=== PATIENT | female | born 1940 | race African-American/Black ===

== ENCOUNTER 2021-03-20 05:47 | Inpatient (IN) | payer MEDICARE, OTHER ==
[2021-03-15 16:37] VITALS: BMI 26.4
[2021-03-20] MEDS ORDERED: VANCOMYCIN 1,000 MG VIAL (RESTRICTED TO ID ONLY) ONE (07:19)
[2021-03-20] MEDS ORDERED: BUPIVACAINE LIPOSOME/PF (EXPAREL) 266 MG/20 ML VIAL ONE (07:20)
[2021-03-20] MEDS ORDERED: MIDAZOLAM HCL 2 MG/2 ML SINGLE DOSE VIAL ONE (07:20)
[2021-03-20] MEDS ORDERED: SODIUM CHLORIDE 0.9% P/F 10 ML VIAL IJ ONE (07:20)
[2021-03-20] MEDS ORDERED: BUPIVACAINE HCL/PF 0.5% (5MG/ML) 10 ML VIAL ONE ×2 (07:20→07:35)
[2021-03-20] MEDS ORDERED: CEFAZOLIN 1 GM/D5W 1 GM/50 ML BAG IVPB ONE (07:40)
[2021-03-20] MEDS ORDERED: MAG HYDROX/AL HYDROX/SIMETH 30 ML UNIT-DOSE CUP PO PRN (07:41)
[2021-03-20] MEDS ORDERED: ONDANSETRON 4 MG/2 ML VIAL IVPUSH PRN (07:41)
[2021-03-20] MEDS ORDERED: LACTATED RINGERS SOLUTION 1,000 ML IV SCH (07:45)
[2021-03-20] MEDS ORDERED: ceFAZolin SODIUM 1 GM VIAL ONE (08:18)
[2021-03-20] MEDS ORDERED: TRANEXAMIC ACID 1000 MG/10 ML VIAL ONE ×2 (08:20→10:13)
[2021-03-20] MEDS ORDERED: DEXAMETHASONE SOD PHOSPHATE 4 MG/1 ML VIAL ONE (08:21)
[2021-03-20] MEDS ORDERED: BUPIVICAINE 0.25%/MORPH PF/KETOROLAC - 51ML DISP.SYRINGE IA ONE ×3 (08:53→11:04)
[2021-03-20] MEDS ORDERED: ePHEDrine SULFATE 50 MG/1 ML AMPULE ONE (10:43)
[2021-03-20] MEDS ORDERED: ACETAMINOPHEN INJECTION 100 ML IVPB ONE (11:47)
[2021-03-20] MEDS ORDERED: KETOROLAC TROMETHAMINE 30 MG/1 ML VIAL ONE (11:47)
[2021-03-20] MEDS ORDERED: ACETAMINOPHEN 1000 MG/100 ML BAG IVPB ONE (11:48)
[2021-03-20] MEDS ORDERED: oxyCODONE HCL 5 MG TABLET PO PRN ×2 (11:48)
[2021-03-20] MEDS: KETOROLAC TROMETHAMINE 30 MG/1 ML VIAL IVPUSH SCH ×2 (12:00→17:49)
[2021-03-20] MEDS ORDERED: ACETAMINOPHEN 500 MG TABLET (FP) PO SCH (12:00)
[2021-03-20] MEDS ORDERED: METHYLPHENIDATE HCL 20 MG PO SCH (14:00)
[2021-03-20] MEDS ORDERED: PATIENT'S OWN MEDICATION (NON-FORMULARY) (Dexlansoprazole [Dexilant] 60 MG Cap.Dr.Bp) PO SCH (14:00)
[2021-03-20] MEDS ORDERED: oxyCODONE HCL 10 MG SUSTAINED ACTING TABLET PO SCH (14:07)
[2021-03-20] MEDS: LOSARTAN 50MG/HCTZ 12.5MG 1 TAB PO SCH (14:33)
[2021-03-20] MEDS: amLODIPine BESYLATE 2.5 MG TABLET (FP) PO SCH (14:33)
[2021-03-20] MEDS: metoPROLOL SUCCINATE 25 MG TAB.SR.24H (FP) PO SCH (14:33)
[2021-03-20] MEDS: ESCITALOPRAM OXALATE 20 MG TABLET PO SCH (14:33)
[2021-03-20] MEDS: oxyCODONE HCL 10 MG SUSTAINED ACTING TABLET PO SCH (14:34)
[2021-03-20] MEDS ORDERED: PATIENT'S OWN MEDICATION (NON-FORMULARY) (Linaclotide [Linzess] 72 MCG Capsule) PO SCH (15:15)
[2021-03-20] MEDS: CEFAZOLIN 2 GM/D5W 2 GM/50 ML ML IVPB SCH (17:49)
[2021-03-20] MEDS: ACETAMINOPHEN 500 MG TABLET (FP) PO SCH (17:50)
[2021-03-20] MEDS: MULTIVITAMINS (DAILY MVI) TABLET (FP) PO SCH (20:21)
[2021-03-20] MEDS: SENNOSIDES/DOCUSATE COMBO (SENNA PLUS) TABLET (UD) PO SCH ×2 (20:21→21:31)
[2021-03-20] MEDS: GABAPENTIN 300 MG CAPSULE PO SCH ×2 (20:21→21:31)
[2021-03-20] MEDS: PANTOPRAZOLE 40 MG TABLET PO SCH (20:21)
[2021-03-20] MEDS: ATORVASTATIN CA 20 MG TABLET (FP) PO SCH (21:31)
[2021-03-20] MEDS ORDERED: CYCLOBENZAPRINE HCL 5 MG TABLET PO PRN (22:00)
[2021-03-20] MEDS: LATANOPROST 0.005% OPHTH SOLN 2.5ML BOTTLE OU SCH (22:25)
[2021-03-21] MEDS: CEFAZOLIN 2 GM/D5W 2 GM/50 ML ML IVPB SCH ×2 (00:01→08:28)
[2021-03-21] MEDS: oxyCODONE HCL 10 MG SUSTAINED ACTING TABLET PO SCH ×3 (00:01→21:27)
[2021-03-21] MEDS: ACETAMINOPHEN 500 MG TABLET (FP) PO SCH ×4 (06:22→18:41)
[2021-03-21 08:14] LABS: HEMATOCRIT 27.6 % (32.4-45.2); MCH 32.9 pg (25.7-33.7); MCHC 32.6 g/dl (32.0-36.0); MEAN CELL VOLUME 100.8 fl (80-96); MEAN PLT VOLUME 9.2 fl (7.5-11.1); PLATELET COUNT 232 10^3/uL (134-434); RBC 2.73 M/mm3 (3.60-5.2); RDW 12.4 % (11.6-15.6); WHITE BLOOD COUNT 12.5 K/mm3 (4.0-10.8)
[2021-03-21 08:17] LABS: CALCIUM 8.5 mg/dl (8.5-10); CREATININE 1.2 mg/dl (0.55-1.3)
[2021-03-21] MEDS: metoPROLOL SUCCINATE 25 MG TAB.SR.24H (FP) PO SCH (09:53)
[2021-03-21] MEDS: MULTIVITAMINS (DAILY MVI) TABLET (FP) PO SCH (09:53)
[2021-03-21] MEDS: amLODIPine BESYLATE 2.5 MG TABLET (FP) PO SCH (09:53)
[2021-03-21] MEDS: ESCITALOPRAM OXALATE 20 MG TABLET PO SCH (09:53)
[2021-03-21] MEDS: GABAPENTIN 300 MG CAPSULE PO SCH ×2 (09:53→21:27)
[2021-03-21] MEDS: FUROSEMIDE 20 MG TABLET (FP) PO SCH (09:54)
[2021-03-21] MEDS: LOSARTAN 50MG/HCTZ 12.5MG 1 TAB PO SCH (09:54)
[2021-03-21] MEDS: PANTOPRAZOLE 40 MG TABLET PO SCH (09:54)
[2021-03-21] MEDS: ASPIRIN 325 MG TABLET PO SCH ×2 (09:54→21:27)
[2021-03-21] MEDS ORDERED: PATIENT'S OWN MEDICATION (NON-FORMULARY) (Linaclotide [Linzess] 72 MCG Capsule) PO SCH (10:00)
[2021-03-21] MEDS: SENNOSIDES/DOCUSATE COMBO (SENNA PLUS) TABLET (UD) PO SCH ×2 (10:03→21:27)
[2021-03-21] MEDS ORDERED: PT OWN MED DRAWER 7, Y5N ONE ×2 (10:34→21:23)
[2021-03-21] MEDS ORDERED: ACETAMINOPHEN 325 MG TABLET (FP) ONE (21:23)
[2021-03-21] MEDS: LATANOPROST 0.005% OPHTH SOLN 2.5ML BOTTLE OU SCH (21:26)
[2021-03-21] MEDS: ATORVASTATIN CA 20 MG TABLET (FP) PO SCH (21:27)
[2021-03-22] MEDS ORDERED: ACETAMINOPHEN 500 MG TABLET (FP) ONE (06:37)
[2021-03-22] MEDS: ACETAMINOPHEN 500 MG TABLET (FP) PO SCH ×3 (06:38→11:21)
[2021-03-22 08:07] LABS: HEMATOCRIT 25.5 % (32.4-45.2); HEMOGLOBIN 8.7 GM/dl (10.7-15.3); MCH 33.6 pg (25.7-33.7); MEAN CELL VOLUME 98.7 fl (80-96); MEAN PLT VOLUME 9.3 fl (7.5-11.1); PLATELET COUNT 210 10^3/uL (134-434); RBC 2.59 M/mm3 (3.60-5.2); RDW 12.5 % (11.6-15.6)
[2021-03-22] MEDS: ASPIRIN 325 MG TABLET PO SCH (11:14)
[2021-03-22] MEDS: MULTIVITAMINS (DAILY MVI) TABLET (FP) PO SCH (11:14)
[2021-03-22] MEDS: ESCITALOPRAM OXALATE 20 MG TABLET PO SCH (11:15)
[2021-03-22] MEDS: LOSARTAN 50MG/HCTZ 12.5MG 1 TAB PO SCH (11:15)
[2021-03-22] MEDS: FUROSEMIDE 20 MG TABLET (FP) PO SCH (11:15)
[2021-03-22] MEDS: metoPROLOL SUCCINATE 25 MG TAB.SR.24H (FP) PO SCH (11:19)
[2021-03-22] MEDS: SENNOSIDES/DOCUSATE COMBO (SENNA PLUS) TABLET (UD) PO SCH (11:19)
[2021-03-22] MEDS: PANTOPRAZOLE 40 MG TABLET PO SCH (11:19)
[2021-03-22] MEDS: oxyCODONE HCL 10 MG SUSTAINED ACTING TABLET PO SCH (11:20)
[2021-03-22] MEDS: GABAPENTIN 300 MG CAPSULE PO SCH (11:20)
[2021-03-22] MEDS: amLODIPine BESYLATE 2.5 MG TABLET (FP) PO SCH (11:24)
[2021-03-22 14:08] VITALS: BP 98/41; PULSE 84; TEMP 99.9
== END 2021-03-22 17:33 | disposition home or self-care (01) | DRG 470 ==
LOC: FM/S 05:47 → UNDODISIN 03-22 14:57
PROVIDERS: ADMIT Orthopaedic Surgery Sports Medicine; ATTEND Nurse Practitioner Acute Care
PROC: 0MQP4ZZ Repair Left Knee Bursa and Ligament, Percutaneous Endoscopic Approach (ICD-10-PCS; 2021-03-20)
PROC: 0SRD0JZ Replacement of Left Knee Joint with Synthetic Substitute, Open Approach (ICD-10-PCS; principal; 2021-03-20 08:41)
DX: M17.12 Unilateral primary osteoarthritis, left knee (principal); E78.5 Hyperlipidemia, unspecified; I10 Essential (primary) hypertension; K58.9 Irritable bowel syndrome, unspecified; G47.419 Narcolepsy without cataplexy
CPT/HCPCS: 36415; 73560-TC-LT-FY; 80048; 85027; 88305-TC; 88311-TC; 94760; 97116-GP; 97163-GP; J0131

== ENCOUNTER 2021-08-07 05:56 | Inpatient (IN) | payer MEDICARE, OTHER ==
[2021-08-01 16:59] VITALS: BMI 28.3
[~2021-08-07 05:56] MED LIST: VANCOMYCIN 1,000 MG VIAL (RESTRICTED TO ID ONLY) IVPB ONE
[2021-08-07] MEDS ORDERED: BUPIVACAINE LIPOSOME/PF (EXPAREL) 266 MG/20 ML VIAL ONE (06:40)
[2021-08-07] MEDS ORDERED: MIDAZOLAM HCL 2 MG/2 ML SINGLE DOSE VIAL ONE (06:40)
[2021-08-07] MEDS ORDERED: SODIUM CHLORIDE 0.9% P/F 10 ML VIAL IJ ONE (06:41)
[2021-08-07] MEDS ORDERED: BUPIVACAINE HCL/PF 0.5% (5MG/ML) 10 ML VIAL ONE ×2 (06:41→07:45)
[2021-08-07] MEDS ORDERED: MAG HYDROX/AL HYDROX/SIMETH 30 ML UNIT-DOSE CUP PO PRN (07:22)
[2021-08-07] MEDS ORDERED: ONDANSETRON 4 MG/2 ML VIAL IVPUSH PRN (07:22)
[2021-08-07] MEDS ORDERED: VANCOMYCIN 1,000 MG VIAL (RESTRICTED TO ID ONLY) ONE (07:22)
[2021-08-07] MEDS ORDERED: LACTATED RINGERS SOLUTION 1,000 ML IV SCH (07:30)
[2021-08-07] MEDS ORDERED: DEXMEDETOMIDINE HCL 200 MCG/2 ML IVPB ONE (07:44)
[2021-08-07] MEDS ORDERED: PROPOFOL 20 ML ONE (08:09)
[2021-08-07] MEDS ORDERED: SUCCINYLCHOLINE CHLORIDE 200 MG/10 ML SYRINGE ONE (08:09)
[2021-08-07] MEDS ORDERED: ePHEDrine SULFATE 50 MG/1 ML AMPULE ONE (08:50)
[2021-08-07] MEDS ORDERED: PHENYLEPHRINE HCL 10 MG/1 ML SINGLE DOSE VIAL ONE (09:00)
[2021-08-07] MEDS ORDERED: BUPIVICAINE 0.25%/MORPH PF/KETOROLAC - 51ML DISP.SYRINGE IA ONE ×2 (09:31→10:10)
[2021-08-07] MEDS ORDERED: PANTOPRAZOLE 40 MG TABLET PO SCH (10:00)
[2021-08-07] MEDS ORDERED: VANCOMYCIN 1,000 MG VIAL (RESTRICTED TO ID ONLY) IVPB ONE (10:01)
[2021-08-07] MEDS ORDERED: oxyCODONE HCL 5 MG TABLET PO PRN ×2 (10:56→11:05)
[2021-08-07] MEDS ORDERED: ACETAMINOPHEN 1000 MG/100 ML BAG IVPB ONE (10:56)
[2021-08-07] MEDS: ACETAMINOPHEN 1000 MG/100 ML BAG IVPB SCH ×4 (11:30→23:46)
[2021-08-07] MEDS ORDERED: METHYLPHENIDATE HCL 20 MG PO SCH (13:15)
[2021-08-07] MEDS ORDERED: PATIENT'S OWN MEDICATION (NON-FORMULARY) (Linaclotide [Linzess] 72 MCG Capsule) PO SCH (13:15)
[2021-08-07] MEDS: LACTATED RINGERS SOLUTION 1,000 ML IV SCH (14:00)
[2021-08-07] MEDS: MULTIVITAMINS (DAILY MVI) TABLET (FP) PO SCH (14:01)
[2021-08-07] MEDS: metoPROLOL SUCCINATE 25 MG TAB.SR.24H (FP) PO SCH (14:01)
[2021-08-07] MEDS: ESCITALOPRAM OXALATE 20 MG TABLET PO SCH (14:02)
[2021-08-07] MEDS: GABAPENTIN 300 MG CAPSULE PO SCH ×2 (14:02→21:27)
[2021-08-07] MEDS: SENNOSIDES/DOCUSATE COMBO (SENNA PLUS) TABLET (UD) PO SCH ×2 (14:02→21:27)
[2021-08-07] MEDS: LOSARTAN 50MG/HCTZ 12.5MG 1 TAB PO SCH (14:04)
[2021-08-07] MEDS ORDERED: ceFAZolin SODIUM 1 GM VIAL ONE ×2 (16:20→21:17)
[2021-08-07] MEDS ORDERED: DEXTROSE 5%-WATER - 50 ML IVPB ONE ×2 (16:20→21:17)
[2021-08-07] MEDS: CEFAZOLIN 2 GM in DEXTROSE 5%-WATER - 50 ML IVPB SCH ×2 (16:29→23:47)
[2021-08-07] MEDS: ATORVASTATIN CA 20 MG TABLET (FP) PO SCH (21:26)
[2021-08-07] MEDS: CALCIUM (OYSTER SHELL) 500 MG TABLET (FP) PO SCH (21:27)
[2021-08-07] MEDS: LATANOPROST 0.005% OPHTH SOLN 2.5ML BOTTLE OU SCH (21:28)
[2021-08-08] MEDS ORDERED: ceFAZolin SODIUM 1 GM VIAL ONE (05:54)
[2021-08-08] MEDS ORDERED: DEXTROSE 5%-WATER - 50 ML IVPB ONE (05:54)
[2021-08-08] MEDS: ACETAMINOPHEN 1000 MG/100 ML BAG IVPB SCH (06:21)
[2021-08-08] MEDS: MULTIVITAMINS (DAILY MVI) TABLET (FP) PO SCH (09:15)
[2021-08-08] MEDS: PANTOPRAZOLE 40 MG TABLET PO SCH (09:15)
[2021-08-08] MEDS: CEFAZOLIN 2 GM in DEXTROSE 5%-WATER - 50 ML IVPB SCH (09:15)
[2021-08-08] MEDS: ASPIRIN 325 MG TABLET PO SCH ×2 (09:15→21:01)
[2021-08-08] MEDS: FUROSEMIDE 20 MG TABLET (FP) PO SCH (09:15)
[2021-08-08] MEDS: ESCITALOPRAM OXALATE 20 MG TABLET PO SCH (09:16)
[2021-08-08] MEDS: SENNOSIDES/DOCUSATE COMBO (SENNA PLUS) TABLET (UD) PO SCH ×2 (09:16→21:04)
[2021-08-08] MEDS: CALCIUM (OYSTER SHELL) 500 MG TABLET (FP) PO SCH ×2 (09:16→21:04)
[2021-08-08] MEDS: metoPROLOL SUCCINATE 25 MG TAB.SR.24H (FP) PO SCH (09:16)
[2021-08-08] MEDS: amLODIPine BESYLATE 2.5 MG TABLET (FP) PO SCH (09:16)
[2021-08-08] MEDS: LOSARTAN 50MG/HCTZ 12.5MG 1 TAB PO SCH (09:16)
[2021-08-08] MEDS: GABAPENTIN 300 MG CAPSULE PO SCH ×2 (09:16→21:03)
[2021-08-08] MEDS: LACTATED RINGERS SOLUTION 1,000 ML IV SCH (11:56)
[2021-08-08 12:18] LABS: CALCIUM 8.7 mg/dl (8.5-10); CREATININE 0.8 mg/dl (0.55-1.3)
[2021-08-08] MEDS ORDERED: SODIUM CHLORIDE 250 ML IV STA (12:30)
[2021-08-08] MEDS: POTASSIUM CHLORIDE TABS 20 MEQ TABLET.ER (FP) PO SCH ×2 (12:49→17:56)
[2021-08-08 13:26] LABS: HEMOGLOBIN 10.2 GM/dL (10.7-15.3); MCH 32.8 pg (25.7-33.7); MCHC 33.1 g/dl (32.0-36.0); MEAN CELL VOLUME 99.2 fl (80-96); MEAN PLT VOLUME 9.5 fl (7.5-11.1); PLATELET COUNT 256 10^3/uL (134-434); RBC 3.12 M/mm3 (3.60-5.2); RDW 14.9 % (11.6-15.6); WHITE BLOOD COUNT 10.1 K/mm3 (4.0-10.0)
[2021-08-08] MEDS: ACETAMINOPHEN 1000 MG/100 ML BAG IVPB PRN ×2 (14:39→21:04)
[2021-08-08] MEDS: ATORVASTATIN CA 20 MG TABLET (FP) PO SCH (21:02)
[2021-08-08] MEDS: LATANOPROST 0.005% OPHTH SOLN 2.5ML BOTTLE OU SCH (21:05)
[2021-08-09] MEDS: ACETAMINOPHEN 1000 MG/100 ML BAG IVPB PRN (08:20)
[2021-08-09 09:01] LABS: ALBUMIN 3.3 g/dl (3.4-5.0); BILIRUBIN,TOTAL 0.9 mg/dl (0.2-1); CALCIUM 8.6 mg/dl (8.5-10); CREATININE 0.7 mg/dl (0.55-1.3); TOT PROT 5.6 g/dl (6.4-8.2)
[2021-08-09 10:02] VITALS: BP 127/53; PULSE 85; TEMP 98.9
[2021-08-09] MEDS: metoPROLOL SUCCINATE 25 MG TAB.SR.24H (FP) PO SCH (10:03)
[2021-08-09] MEDS: LOSARTAN 50MG/HCTZ 12.5MG 1 TAB PO SCH (10:03)
[2021-08-09] MEDS: amLODIPine BESYLATE 2.5 MG TABLET (FP) PO SCH (10:03)
[2021-08-09] MEDS: MULTIVITAMINS (DAILY MVI) TABLET (FP) PO SCH (10:04)
[2021-08-09] MEDS: PANTOPRAZOLE 40 MG TABLET PO SCH (10:04)
[2021-08-09] MEDS: CALCIUM (OYSTER SHELL) 500 MG TABLET (FP) PO SCH (10:04)
[2021-08-09] MEDS: ESCITALOPRAM OXALATE 20 MG TABLET PO SCH (10:04)
[2021-08-09] MEDS: FUROSEMIDE 20 MG TABLET (FP) PO SCH (10:04)
[2021-08-09] MEDS: SENNOSIDES/DOCUSATE COMBO (SENNA PLUS) TABLET (UD) PO SCH (10:04)
[2021-08-09] MEDS: GABAPENTIN 300 MG CAPSULE PO SCH (10:04)
[2021-08-09] MEDS: ASPIRIN 325 MG TABLET PO SCH (10:04)
[2021-08-09 10:15] LABS: BASO % 0.4 % (0-2.0); EOS % 2.1 % (0-4.5); HEMATOCRIT 30.8 % (32.4-45.2); HEMOGLOBIN 10.3 GM/dL (10.7-15.3); LYMPH % 9.7 % (8-40); MCH 32.9 pg (25.7-33.7); MCHC 33.4 g/dl (32.0-36.0); MEAN CELL VOLUME 98.5 fl (80-96); MEAN PLT VOLUME 9.2 fl (7.5-11.1); MONO % 9.1 % (3.8-10.2); NEUT % 78.7 % (42.8-82.8); PLATELET COUNT 226 10^3/uL (134-434); RBC 3.12 M/mm3 (3.60-5.2); RDW 15.2 % (11.6-15.6); WHITE BLOOD COUNT 8.5 K/mm3 (4.0-10.0)
[2021-08-09 13:59] LABS: MAGNESIUM 2.3 mg/dL (1.8-2.4)
== END 2021-08-09 12:13 | disposition home or self-care (01) | DRG 470 ==
LOC: FM/S 05:56
PROVIDERS: ADMIT Orthopaedic Surgery Sports Medicine; ATTEND Nurse Practitioner Acute Care
PROC: 8E0Y0CZ Robotic Assisted Procedure of Lower Extremity, Open Approach (ICD-10-PCS; 2021-08-07)
PROC: 0SRC0J9 Replacement of Right Knee Joint with Synthetic Substitute, Cemented, Open Approach (ICD-10-PCS; principal; 2021-08-07 08:50)
DX: M17.11 Unilateral primary osteoarthritis, right knee (principal); I10 Essential (primary) hypertension; E78.5 Hyperlipidemia, unspecified; H40.9 Unspecified glaucoma; K58.9 Irritable bowel syndrome, unspecified; E87.6 Hypokalemia
CPT/HCPCS: 36415; 73560-TC-RT-FY; 80048; 80053; 83735; 85025; 85027; 88305-TC; 88311-TC; 94760; 97010-GP; 97116-GP; 97162-GP

== ENCOUNTER 2021-11-27 08:36 | Observation (INO) | payer MEDICARE, OTHER ==
[2021-11-27] MEDS ORDERED: ACETAMINOPHEN 1000 MG/100 ML BAG IVPB ONE (09:31)
[2021-11-27] MEDS ORDERED: ACETAMINOPHEN INJECTION 100 ML IVPB ONE (10:01)
[2021-11-27 10:13] LABS: BASO % 0.3 % (0-2.0); EOS % 0.4 % (0-4.5); HEMOGLOBIN 10.7 GM/dL (10.7-15.3); MCH 31.5 pg (25.7-33.7); MCHC 33.4 g/dl (32.0-36.0); MEAN CELL VOLUME 94.2 fl (80-96); MEAN PLT VOLUME 9.1 fl (7.5-11.1); MONO % 9.4 % (3.8-10.2); NEUT % 82.9 % (42.8-82.8); PLATELET COUNT 267 10^3/uL (134-434); RDW 13.7 % (11.6-15.6); WHITE BLOOD COUNT 12.9 K/mm3 (4.0-10.0)
[2021-11-27 10:17] LABS: INR 1.21 (0.83-1.09); PROTHROMBIN TIME (PATIENT) 13.9 SEC (9.7-13.0)
[2021-11-27 10:20] LABS: ACTIVATED PTT 27.6 SECONDS (25.2-36.5)
[2021-11-27 11:31] LABS: BLOOD UREA NITROGEN 17.7 mg/dL (7-18)
[2021-11-27 11:32] LABS: ALBUMIN 3.6 g/dl (3.4-5.0); CALCIUM 8.5 mg/dL (8.5-10.1); CREATININE 0.7 mg/dL (0.55-1.3)
[2021-11-27 11:33] LABS: BILIRUBIN,TOTAL 1.2 mg/dL (0.2-1)
[2021-11-27 12:01] LABS: TOT PROT 6.2 g/dl (6.4-8.2)
[2021-11-27] MEDS ORDERED: SODIUM CHLORIDE 0.9% 500 ML INFUS.BAG IV ONE (13:55)
[2021-11-27] MEDS ORDERED: PANTOPRAZOLE 40 MG TABLET PO ONE (18:38)
[2021-11-27] MEDS: PANTOPRAZOLE 40 MG TABLET PO SCH (18:40)
[2021-11-27 20:27] VITALS: BMI 32.0
[2021-11-27] MEDS: ATORVASTATIN CA 20 MG TABLET (FP) PO SCH (21:10)
[2021-11-27] MEDS: HEPARIN NA (PORCINE) 5,000 UNITS/ML 1ML VIAL SQ SCH (21:10)
[2021-11-27] MEDS: LATANOPROST 0.005% OPHTH SOLN 2.5ML BOTTLE OU SCH (21:45)
[2021-11-27] MEDS ORDERED: PATIENT'S OWN MEDICATION (NON-FORMULARY) (Latanoprost/Pf [Latanoprost 0.005% Eye Drop] 7.5 OP SCH (22:00)
[2021-11-27] MEDS ORDERED: ACETAMINOPHEN 325 MG TABLET (FP) ONE (23:09)
[2021-11-28 08:16] LABS: BASO % 0.9 % (0-2.0); HEMATOCRIT 31.9 % (32.4-45.2); HEMOGLOBIN 10.7 GM/dL (10.7-15.3); LYMPH % 14.1 % (8-40); MCH 31.9 pg (25.7-33.7); MCHC 33.7 g/dl (32.0-36.0); MEAN CELL VOLUME 94.8 fl (80-96); MEAN PLT VOLUME 8.8 fl (7.5-11.1); MONO % 8.3 % (3.8-10.2); NEUT % 74.7 % (42.8-82.8); PLATELET COUNT 247 10^3/uL (134-434); RBC 3.37 M/mm3 (3.60-5.2); RDW 13.4 % (11.6-15.6); WHITE BLOOD COUNT 8.6 K/mm3 (4.0-10.0)
[2021-11-28 08:39] LABS: ALBUMIN 3.1 g/dl (3.4-5.0); CALCIUM 8.5 mg/dL (8.5-10.1)
[2021-11-28 08:40] LABS: BLOOD UREA NITROGEN 15.4 mg/dL (7-18)
[2021-11-28 08:43] LABS: CREATININE 0.6 mg/dL (0.55-1.3)
[2021-11-28 08:44] LABS: BILIRUBIN,TOTAL 0.8 mg/dL (0.2-1); TOT PROT 5.8 g/dl (6.4-8.2)
[2021-11-28] MEDS ORDERED: ESCITALOPRAM OXALATE 10 MG TABLET ONE (09:36)
[2021-11-28] MEDS: PANTOPRAZOLE 40 MG TABLET PO SCH (10:20)
[2021-11-28] MEDS: metoPROLOL SUCCINATE 25 MG TAB.SR.24H (FP) PO SCH (10:20)
[2021-11-28] MEDS: ASPIRIN 81 MG CHEWABLE TABLETS PO SCH (10:20)
[2021-11-28] MEDS: HEPARIN NA (PORCINE) 5,000 UNITS/ML 1ML VIAL SQ SCH ×2 (10:21→21:32)
[2021-11-28] MEDS: FUROSEMIDE 20 MG TABLET (FP) PO SCH (10:21)
[2021-11-28] MEDS: ESCITALOPRAM OXALATE 20 MG TABLET PO SCH (10:23)
[2021-11-28] MEDS: LOSARTAN 50MG/HCTZ 12.5MG 1 TAB PO SCH (11:40)
[2021-11-28] MEDS: SIMETHICONE 80 MG TAB.CHEW (FP) PO SCH ×3 (14:58→21:31)
[2021-11-28] MEDS: METOCLOPRAMIDE HCL 10 MG TABLET (FP) PO SCH (17:29)
[2021-11-28] MEDS: ATORVASTATIN CA 20 MG TABLET (FP) PO SCH (21:30)
[2021-11-28] MEDS: LATANOPROST 0.005% OPHTH SOLN 2.5ML BOTTLE OU SCH (21:34)
[2021-11-29] MEDS ORDERED: ACETAMINOPHEN 325 MG TABLET (FP) ONE (01:04)
[2021-11-29] MEDS: METOCLOPRAMIDE HCL 10 MG TABLET (FP) PO SCH ×4 (06:01→16:29)
[2021-11-29] MEDS ORDERED: ESCITALOPRAM OXALATE 10 MG TABLET ONE (08:38)
[2021-11-29] MEDS ORDERED: REGADENOSON 0.4 MG/5 ML PRE-FILLED SYRINGE IVPUSH ONE ×2 (10:30→10:45)
[2021-11-29] MEDS ORDERED: POTASSIUM CHLORIDE TABS 20 MEQ TABLET.ER (FP) PO ONE (11:21)
[2021-11-29] MEDS: PANTOPRAZOLE 40 MG TABLET PO SCH (11:44)
[2021-11-29] MEDS: SIMETHICONE 80 MG TAB.CHEW (FP) PO SCH ×4 (11:44→21:45)
[2021-11-29] MEDS: ASPIRIN 81 MG CHEWABLE TABLETS PO SCH (11:44)
[2021-11-29] MEDS: FUROSEMIDE 20 MG TABLET (FP) PO SCH (11:44)
[2021-11-29] MEDS: ESCITALOPRAM OXALATE 20 MG TABLET PO SCH ×2 (11:45→11:48)
[2021-11-29] MEDS: LOSARTAN 50MG/HCTZ 12.5MG 1 TAB PO SCH (11:45)
[2021-11-29] MEDS: HEPARIN NA (PORCINE) 5,000 UNITS/ML 1ML VIAL SQ SCH ×2 (11:45→21:45)
[2021-11-29] MEDS: metoPROLOL SUCCINATE 25 MG TAB.SR.24H (FP) PO SCH (12:12)
[2021-11-29] MEDS ORDERED: ONDANSETRON 4 MG/2 ML VIAL IVPUSH PRN (21:23)
[2021-11-29] MEDS: ATORVASTATIN CA 20 MG TABLET (FP) PO SCH (21:45)
[2021-11-29] MEDS: LATANOPROST 0.005% OPHTH SOLN 2.5ML BOTTLE OU SCH (21:49)
[2021-11-30] MEDS: METOCLOPRAMIDE HCL 10 MG TABLET (FP) PO SCH ×3 (06:14→15:33)
[2021-11-30] MEDS ORDERED: ESCITALOPRAM OXALATE 10 MG TABLET ONE (10:02)
[2021-11-30] MEDS: PANTOPRAZOLE 40 MG TABLET PO SCH (10:27)
[2021-11-30] MEDS: FUROSEMIDE 20 MG TABLET (FP) PO SCH (10:27)
[2021-11-30] MEDS: metoPROLOL SUCCINATE 25 MG TAB.SR.24H (FP) PO SCH (10:27)
[2021-11-30] MEDS: ASPIRIN 81 MG CHEWABLE TABLETS PO SCH (10:27)
[2021-11-30] MEDS: SIMETHICONE 80 MG TAB.CHEW (FP) PO SCH ×2 (10:27→13:28)
[2021-11-30] MEDS: LOSARTAN 50MG/HCTZ 12.5MG 1 TAB PO SCH (10:27)
[2021-11-30] MEDS: HEPARIN NA (PORCINE) 5,000 UNITS/ML 1ML VIAL SQ SCH (10:28)
[2021-11-30] MEDS: ESCITALOPRAM OXALATE 20 MG TABLET PO SCH (10:29)
[2021-11-30 12:52] LABS: BASO % 0.3 % (0-2.0); HEMATOCRIT 33.8 % (32.4-45.2); LYMPH % 4.8 % (8-40); MCH 31.2 pg (25.7-33.7); MCHC 32.7 g/dl (32.0-36.0); MEAN CELL VOLUME 95.5 fl (80-96); MEAN PLT VOLUME 8.4 fl (7.5-11.1); MONO % 6.1 % (3.8-10.2); NEUT % 87.8 % (42.8-82.8); PLATELET COUNT 314 10^3/uL (134-434); RBC 3.54 M/mm3 (3.60-5.2); RDW 13.6 % (11.6-15.6); WHITE BLOOD COUNT 6.7 K/mm3 (4.0-10.0)
[2021-11-30 13:53] LABS: ALBUMIN 3.5 g/dl (3.4-5.0); CALCIUM 8.7 mg/dL (8.5-10.1)
[2021-11-30 13:57] LABS: CREATININE 0.7 mg/dL (0.55-1.3)
[2021-11-30 13:59] LABS: BILIRUBIN,TOTAL 0.6 mg/dL (0.2-1); TOT PROT 6.5 g/dl (6.4-8.2)
[2021-11-30 14:15] LABS: MAGNESIUM 2.5 mg/dL (1.8-2.4)
[2021-11-30 14:58] VITALS: BP 102/53; PULSE 78; TEMP 98.2
[2021-11-30 15:38] LABS: PHOSPHOROUS 3.1 mg/dL (2.5-4.9)
== END 2021-11-30 16:02 | disposition home or self-care (01) ==
LOC: JER 08:36 → JERBED 13:44 → UNDOADMOB 13:44 → INTOOBSV 13:44 → JERBED 19:55 → J4S 19:55 → JERBED 11-28 13:39 → J4S 11-28 13:39 → OBSVTOIN 11-28 13:42 → INTOOBSV 11-28 13:42
PROVIDERS: ADMIT Internal Medicine; ATTEND Internal Medicine
PROC: 3E033NZ Introduction of Analgesics, Hypnotics, Sedatives into Peripheral Vein, Percutaneous Approach (ICD-10-PCS; principal; 2021-11-28)
PROC: 3E023GC Introduction of Other Therapeutic Substance into Muscle, Percutaneous Approach (ICD-10-PCS; 2021-11-28)
PROC: 3E033GC Introduction of Other Therapeutic Substance into Peripheral Vein, Percutaneous Approach (ICD-10-PCS; 2021-11-28)
PROC: 3E0337Z Introduction of Electrolytic and Water Balance Substance into Peripheral Vein, Percutaneous Approach (ICD-10-PCS; 2021-11-28)
DX: R07.81 Pleurodynia (principal); R07.1 Chest pain on breathing; D72.829 Elevated white blood cell count, unspecified; E87.6 Hypokalemia; E78.5 Hyperlipidemia, unspecified; G47.419 Narcolepsy without cataplexy; F32.A Depression, unspecified; K46.9 Unspecified abdominal hernia without obstruction or gangrene; Z96.653 Presence of artificial knee joint, bilateral; M19.90 Unspecified osteoarthritis, unspecified site; K58.9 Irritable bowel syndrome, unspecified; E66.9 Obesity, unspecified; Z68.32 Body mass index [BMI] 32.0-32.9, adult; Z88.6 Allergy status to analgesic agent
CPT/HCPCS: 36415; 71045-TC-FY; 71275-TC; 74176-TC; 74220-TC-FY; 74240-TC-FY; 74246-TC-FY; 78452-TC; 80053; 80061; 83036; 83735; 84100; 84443; 84484; 85025; 85379; 85610; 85730; 87804; 93005; 93010; 93017; 93306-TC; 93308; 96372; 96374; 96375; 99285-25; A9502; C9803-CS; G0378; J1644; J2785; Q9967; U0003; U0005